=== PATIENT | female | born 1990 | race Caucasian/White ===

== ENCOUNTER 2020-09-19 06:30 | Emergency (ER) | payer OTHER, SELFPAY ==
--- NOTE | 2020-09-19 06:41 | XR_ITS ---
EXAMINATION: LEFT HIP. LEFT ANKLE. LEFT FOOT. IN RIGHT WRIST. CLINICAL INFORMATION: Fall. COMPARISON: None TECHNIQUE: Right wrist 4 views. Left foot 3 views. Left ankle 2 views. Left hip 2 views. FINDINGS: RIGHT WRIST: There is no visible acute fracture, dislocation or subluxation. The soft tissues are normal. LEFT FOOT: There is no visible acute fracture, dislocation or subluxation. The soft tissues are normal. There is mild hallux valgus deformity first MTP joint. LEFT ANKLE: There is no visible acute fracture, dislocation. The ankle mortise and subtalar joints are normal. There is a small calcaneal heel enthesophyte. LEFT HIP: There is no visible acute fracture, dislocation or subluxation. The soft tissues are normal. XR/XR ankle LT min 3V IMPRESSION: Unremarkable right wrist exam. Unremarkable left foot and left ankle exam. Small calcaneal heel enthesophyte. Unremarkable left hip exam.
--- NOTE | 2020-09-19 06:41 | XR_ITS ---
EXAMINATION: LEFT HIP. LEFT ANKLE. LEFT FOOT. IN RIGHT WRIST. CLINICAL INFORMATION: Fall. COMPARISON: None TECHNIQUE: Right wrist 4 views. Left foot 3 views. Left ankle 2 views. Left hip 2 views. FINDINGS: RIGHT WRIST: There is no visible acute fracture, dislocation or subluxation. The soft tissues are normal. LEFT FOOT: There is no visible acute fracture, dislocation or subluxation. The soft tissues are normal. There is mild hallux valgus deformity first MTP joint. LEFT ANKLE: There is no visible acute fracture, dislocation. The ankle mortise and subtalar joints are normal. There is a small calcaneal heel enthesophyte. LEFT HIP: There is no visible acute fracture, dislocation or subluxation. The soft tissues are normal. XR/XR hip LT min 2V IMPRESSION: Unremarkable right wrist exam. Unremarkable left foot and left ankle exam. Small calcaneal heel enthesophyte. Unremarkable left hip exam.
--- NOTE | 2020-09-19 06:41 | XR_ITS ---
EXAMINATION: LEFT HIP. LEFT ANKLE. LEFT FOOT. IN RIGHT WRIST. CLINICAL INFORMATION: Fall. COMPARISON: None TECHNIQUE: Right wrist 4 views. Left foot 3 views. Left ankle 2 views. Left hip 2 views. FINDINGS: RIGHT WRIST: There is no visible acute fracture, dislocation or subluxation. The soft tissues are normal. LEFT FOOT: There is no visible acute fracture, dislocation or subluxation. The soft tissues are normal. There is mild hallux valgus deformity first MTP joint. LEFT ANKLE: There is no visible acute fracture, dislocation. The ankle mortise and subtalar joints are normal. There is a small calcaneal heel enthesophyte. LEFT HIP: There is no visible acute fracture, dislocation or subluxation. The soft tissues are normal. XR/XR wrist RT min 3V IMPRESSION: Unremarkable right wrist exam. Unremarkable left foot and left ankle exam. Small calcaneal heel enthesophyte. Unremarkable left hip exam.
--- NOTE | 2020-09-19 06:41 | XR_ITS ---
EXAMINATION: LEFT HIP. LEFT ANKLE. LEFT FOOT. IN RIGHT WRIST. CLINICAL INFORMATION: Fall. COMPARISON: None TECHNIQUE: Right wrist 4 views. Left foot 3 views. Left ankle 2 views. Left hip 2 views. FINDINGS: RIGHT WRIST: There is no visible acute fracture, dislocation or subluxation. The soft tissues are normal. LEFT FOOT: There is no visible acute fracture, dislocation or subluxation. The soft tissues are normal. There is mild hallux valgus deformity first MTP joint. LEFT ANKLE: There is no visible acute fracture, dislocation. The ankle mortise and subtalar joints are normal. There is a small calcaneal heel enthesophyte. LEFT HIP: There is no visible acute fracture, dislocation or subluxation. The soft tissues are normal. XR/XR foot LT 2V IMPRESSION: Unremarkable right wrist exam. Unremarkable left foot and left ankle exam. Small calcaneal heel enthesophyte. Unremarkable left hip exam.
[2020-09-19 06:42] VITALS: PULSE 79; RESP 16; TEMP 36.6; O2SAT 98; BMI 30.4
--- NOTE | 2020-09-19 06:49 | ED_ITS ---
HPI - Fall General Chief Complaint: Extremity Injury, Lower Stated Complaint: Fall/ Work Inj Time Seen by Provider: 09/19/20 06:41 Source: patient Mode of arrival: ambulatory Limitations: no limitations History of Present Illness HPI Narrative: patient at work in pursuit of individual - slipped and fell complaint: fall Onset (ago): minute(s) (just [employer]) Fall from: standing Fall witnessed: yes, by bystander Place fall occurred: work and street Loss of consciousness: none Prolonged down time: no Symptoms prior to fall: none Context: tripped/slipped Location of injury: other (L hip, L ankle/foot, R wrist) Related Data Previous Rx's Medication Instructions Recorded cyclobenzaprine 10 mg PO TID PRN #18 tab 09/19/20 ibuprofen 600 mg PO Q6H PRN #30 tab 09/19/20 lidocaine 1 patch TOPICAL DAILY PRN #10 ea 09/19/20 Allergies Allergy/AdvReac Type Severity Reaction Status Date / Time No Known Allergies Allergy Verified 09/19/20 06:41 Review of Systems Review of Systems: Constitutional : No Fever, No Chills ENT/Mouth : No Ear Pain, No Hoarseness, No sore throat Eyes: No Eye Pain, No Swelling, No Redness, No Foreign Body Cardiovascular : No Chest Pain, No SOB Respiratory : No Cough, No Dyspnea Gastrointestinal : No Nausea, No Vomiting, No Diarrhea, No abdominal Pain Genitourinary : No Dysuria, No Hematuria Musculoskeletal : positive joint pain, No Myalgias, No Joint Swelling Skin : No Skin lacerations, No rash Neuro : No Weakness, No Numbness, No Loss of Consciousness, No Dizziness, No Headache Psych : No Anxiety/Panic, No Depression Heme/Lymph: no easy bruising, no Lymphadenopathy Endocrine : No Polyuria, No Polydipsia All other systems reviewed and are negative PMFSH Past Medical History Attestation statement: The following information was validated with the patient. Medical History Benign mole Surgical History [place] teeth extracted Social History Social History (Updated 09/19/20 @ 06:53 by Aleisha Tapia DO) Smoking Status: Never smoker Use of substances other than those prescribed or required for medical reasons: No Advance Directives: No Advance Directives Information Provided: No Physical Exam Vital Signs: Vital Signs: Last Vital Signs Temp 98.3 F 09/19/20 07:18 Pulse 94 09/19/20 07:18 Resp 16 09/19/20 07:18 BP 120/81 09/19/20 07:18 Pulse Ox 97 09/19/20 07:18 Body Mass Index 30.4 Appearance: Alert. Oriented X3. No acute distress. Eyes: Pupils equal, round and reactive to light. ENT: Pharynx normal. Neck: Normal inspection. Neck supple. CVS: Normal heart rate and rhythm. Pulses normal. Respiratory: No respiratory distress. Breath sounds normal. Abdomen: Soft and non-tender. Skin: Skin warm and dry. Normal skin color. Normal skin turgor. Extremities: No lower extremity edema. can range and bend right knee and hip no enlargement of muscle no quadriceps tendon insertion pain doubt rupture. R wrist mild ttp but full ROM and is NV intact. L ankle lateral and dorsum of foot ttp mild swelling, L hip pain but can range it has some muscle tightness of L quadriceps as well - distal NV intact Neuro: Oriented X 3. No motor deficit. No sensory deficit. Procedures Orthopedic Splinting/Casting Injury #1: Side: left Lower Extremity Injury Location: ankle Lower Extremity Immobilizer: AirCast MDM - Fall MDM Narrative Medical decision making narrative: 30 yo female involved in foot pursuit of in dividual while at work slipped and fell injuring R wrist, L ankle/foot/hip she is NV intact, suspect mostly MSK strain at this time - xrays ordered Lab Data Labs: Lab Results 09/19/20 Range/Units 06:55 Urine Test NEGATIVE (NEGATIVE) Discharge Plan Discharge Clinical Impression: Ankle sprain and strain Hip strain Qualifiers: Encounter type: initial encounter Laterality: left Qualified Code(s): S76.012A - Strain of muscle, fascia and tendon of left hip, initial encounter Quadriceps muscle strain Qualifiers: Encounter type: initial encounter Laterality: left Qualified Code(s): S76.112A - Strain of left quadriceps muscle, fascia and tendon, initial encounter Muscle strain of right wrist Qualifiers: Encounter type: initial encounter Qualified Code(s): S66.911A - Strain of unspecified muscle, fascia and tendon at wrist and hand level, right hand, initial encounter Patient Disposition: Home, Self-Care Instructions: Ankle Sprain (ED), Muscle Strain (ED) Additional Instructions: return to ED for any worsening symptoms or concerns air cast for 5 days limited weight bearing, rest ice compression Prescriptions: New cyclobenzaprine 10 mg tablet 10 mg PO TID PRN (Reason: muscle spasm) Qty: 18 RF: 0 lidocaine 4 % adhesive patch,medicated 1 patch topical DAILY PRN (Reason: pain) Qty: 10 RF: 0 ibuprofen 600 mg tablet 600 mg PO Q6H PRN (Reason: pain) Qty: 30 RF: 0 Referrals: Glenn Mcguire MD [Physician] - 2 days (any provider if you need to be cleared) Stand Alone Forms: Work/School Release
[2020-09-19 07:08] LABS: UPreg QC Valid YES; Urine Pregnancy NEGATIVE (NEGATIVE)
[2020-09-19 07:18] VITALS: BP 120/81; PULSE 94; RESP 16; TEMP 36.8; O2SAT 97
[2020-09-19] MEDS: Ketorolac Tromethamine 60 MG/2 ML VIAL IM (07:50)
== END 2020-09-19 08:21 | disposition home or self-care (01) ==
PROVIDERS: Emergency Provider Emergency Medicine
DX: S76.112A Strain of left quadriceps muscle, fascia and tendon, initial encounter (principal); S79.912A Unspecified injury of left hip, initial encounter; S66.911A Strain of unspecified muscle, fascia and tendon at wrist and hand level, right hand, initial encounter; M79.641 Pain in right hand; M25.552 Pain in left hip; W01.0XXA Fall on same level from slipping, tripping and stumbling without subsequent striking against object, initial encounter; Y93.02 Activity, running; Y99.0 Civilian activity done for income or pay; Z79.899 Other long term (current) drug therapy
CPT/HCPCS: 29515; 73110; 73502; 73610; 73620; 81025; 96372; 99284; J1885

== ENCOUNTER → 2020-09-26 15:47 | Outpatient (BNVA) | payer OTHER, SELFPAY | PROVIDERS: Visit Provider Physician Assistant | DX: M54.5 Low back pain (principal); M25.572 Pain in left ankle and joints of left foot; M25.532 Pain in left wrist; Z91.81 History of falling | CPT/HCPCS: 99213 ==

== ENCOUNTER → 2020-10-03 14:47 | Outpatient (BNVA) | payer OTHER, SELFPAY | PROVIDERS: Visit Provider Physician Assistant | DX: M54.5 Low back pain (principal); M25.572 Pain in left ankle and joints of left foot; M25.532 Pain in left wrist; Z91.81 History of falling | CPT/HCPCS: 99213 ==